=== PATIENT | female | born 1980 | race Caucasian/White ===

== ENCOUNTER → 2025-05-08 | Outpatient (CLI) | payer BC ==
[~2025-05-08] MED LIST: PROGESTERONE5000 GM; Testosterone5 GM
== END ==
LOC: LAB SHORT 11:45 → LAB 11:45
PROVIDERS: Obstetrics & Gynecology
DX: Z01.419 Encounter for gynecological examination (general) (routine) without abnormal findings (principal)
CPT/HCPCS: 87624; G0145